=== PATIENT | male | born 1930 | race Caucasian/White ===

== ENCOUNTER → 2018-11-26 | Outpatient (CLI) | payer OTHER ==
[~2018-11-26] MED LIST: ASPI81EC; BACPOLTO30 TP; CHOL10002 PO; OMEP10ER; TRIHYD253A
== END | disposition home or self-care (01) ==
LOC: LAB SHORT 10:41 → PLD 10:41
DX: D48.5 Neoplasm of uncertain behavior of skin (principal)
CPT/HCPCS: 88305

== ENCOUNTER → 2020-03-31 | Outpatient (CLI) | payer OTHER | END | disposition home or self-care (01) | LOC: LAB SHORT 11:42 → PLD 11:42 | DX: D48.5 Neoplasm of uncertain behavior of skin (principal) | CPT/HCPCS: 88305 ==